=== PATIENT | female | born 1990 | race Caucasian/White ===

== ENCOUNTER 2017-09-07 14:30 | Outpatient (RCR) | payer MEDICAID, SELFPAY ==
--- NOTE | 2017-08-12 11:06 | HP.OTEVAL_ITS ---
Patient's Visit Information NEGRITA CHAVEZ is a 27 year old F, referred to Occupational Therapy by Out of Town Doctor,, with a diagnosis of L WRIST TENDONITIS AND PAIN; RA. Date of Evaluation: 08/12/17 Occupational Therapist: Margy Pace - Subjective Subjective: Pt., Negrita, arrived and noted that L wrist has been painful for two weeks. She noted that it's typically most painful lifting something, pro/ supination, driving, laundry, and cooking tasks all seem to aggrevate pain symptoms. Pt. 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 - Pain Left Wrist 2 Pain Intensity Range: 7 - Objective Objective/Observation: Pt. R hand has decreased ROM and strength secondary to h/ o RA. She is L hand dominant and has decreased ROM, strength, and increased pain with supination/pronation and load related lifting tasks. She presents with swelling over medial wrist at this time and noted tenderness when palpated. 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 rapport) in R hand. She is L hand dominant. - Strength Retirement Officer: R 9, L 31 Lateral Pinch: R 3, L 6 Tripod Pinch: R 1, L 3 Tip-to-Tip Pinch: R .5, L 2 - Edema Other: some swelling on ulnar side of wrist - Sensation Thumb: R 2.83, L 2.93 Index: R 2.83, L 2.93 Middle: R 2.83, L 2.93 Ring: R 2.83, L 2.93 Little: R 2.83, L 2.93 Kinesthesia: Normal - Right, Normal - Left - Nine Hole Peg Right: 22.48 s Left: 23.75 s - DASH-Disabilities of Arm, Shoulder& Hand DASH Sum: 51 - Goals Goal:: Pt. to increase L hand powder room attendant by 20-30 libs to promote increased ability to L wrist and promote increased ability to complete ADL/IADls pain free 4/5 trials 80% of the time by d/c. Goal:: Pt. to be 0-1/10 pain consistently with all ADl/IADls 4/5 trials 80% of the time to decrease discomfor tand promote increased (I) by time of d/c. Goal:: Pt. will increase fx pinch patterns by 3-5 lbs 4/5 trials 80% of the time to increase ability to complete FMC and manipulation tasks by time of d/c. Goal:: Pt. to be mod I with cues as needed to promote joint protection and body mechanics to increase alignment of L wrist 4/5 trials 80% of the time by d/c. Goal:: Pt. to be mod I to return to all ADl/IADls with use of compensatory measurements as needed 4/5 trials 80% of the time by d/c. Goal:: Pt. will be mod I to complete HEP 4/5 tirals 80% of the time to increase stability of wrist and decrease tendonitis symptoms during fx activities by time of d/c . - Rehabilitation General Assessment: Pt.Negrita, arrived and noted that she has been getting L wrist pain over ulnar side of wrist. She indicates pain at DRUJ on volar side of wrist and presents with some puffiness over medial ulnar wrist area. She also indicates pain over pisiform carpal area and around flexor carpi ulnaris tendon. Pt. ROM is WFL on L side but presents with decreased strength on L sides. She will recieve OT servcies for modalities as needed to decrease pain and inflammation while promoting stability of L wirst through strengthening. She will be education to promote proper body mechanics to for increased (I) in ADl/IADls. Rehabilitation Potential: Excellent - Anticipated Interventions Anticipated Interventions: Early Active Motion, A/AAROM/PROM, Strengthening, Edema Control, Modalities, Orthoses, Joint Protection/Energy Conservation, Ergonomic Education, Fine Motor Coord/Tony, ADL Training, Caregiver Training, Home Program - Visit Plan Frequency: 2x /Week Duration: 4-6 Weeks General Plan: Pt.Negrita, to recieve OT servcies for decreasing pain, and increasing ROM, srtength, body mechanics, joint protection technqiues, and ability to complete all ADl/IADls in pain free range. Modlaities will be used as needed to help decrease pain, as wellas trialing diffierent techniques such as kinesiotaping to promote support and alignment of wrist. TEXT: Thank you for the opportunity to evaluate your patient. For Medicare and Medicare HMO plans, please review the plan of care and approve it. It will need to be FAXED BACK to us at [phone] for Medicare purposes. Please let me know if there are questions or concerns regarding this plan of care. Physician Signature: Date:
--- NOTE | 2017-08-12 12:26 | HP.PTEVAL_ITS ---
Patient's Visit Information DAT CHAVEZ is a 27 year old F referred to Physical Therapy by Out of Town Doctor with a diagnosis of BILATERAL HIP PAIN ,BILATERAL GREATER TRONCHENTRIC BURSITS. Date of Evaluation: 08/12/17 Physical Therapist: Varun Jean Baptiste PT, - Visit Plan Frequency: 2x /Week Duration: 4 Weeks Plan: modalities PRN, hip strengthening,ankle strengthening,nustep - Subjective Subjective: This 27 y/o female presents to physical therapy with Bilateral hip pain,greater trocnanteric bursitis ankle anjle foot pain. 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 Patient has pain and stiffness in multple joints wrist ,knee,hip,ankle pain. 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 Patient affects daily activities and unable to work . Weather makes symptoms. Symtoms worse with walking in hips,difficulty lifting,sitting.Denies parathesia/ tingling.Patient okay at night.Housedwork tasks aggravates pain. VOCATION: unemployed. SOCIAL: - Pain Bilateral Hip Pain Intensity (Out of 10): 4 Pain Intensity Range: 10 Bilateral Ankle Pain Intensity (Out of 10): 3 Pain Intensity Range: 10 Bilateral Knee Pain Intensity (Out of 10): 3 Pain Intensity Range: 10 - Objective POSTURE: mild foward posture. NEURO: intact,denies parathesia/tingling. PALAPTION: mild tender greater tronchentric. ROM: hip 120 degrees,IR 65 ,ER 75 degrees. MMT: quads/hams 4/5,hip flexors/abd 4-/5,ankle EV/IN/DP/PF 4/5. SLS: hip strategie ,slight trendelengerg. GAIT: normal los. FLEXABILITY: hams min tight,piriformis WFL - Special Tests R Hip Scour: Negative R Hip Quadrant - Intraarticular Pathology: Negative R Hip DAMIÁN - Intraarticular Pathology: Negative R Hip Trendelenberg - Glut Medius: Negative R Hip Orlin - IT Band: Negative L Hip Scour: Negative L Hip Quadrant - Intraarticular Pathology: Negative L Hip DAMIÁN - Intraarticular Pathology: Negative L Hip Trendelenberg - Glut Medius: Negative L Hip Orlin - IT Band: Negative - Goals Goal 1:: Independant with HEP Goal Time Frame: 4-6 Weeks Goal 2:: Decrease hip pain by 50% or greater to improve function with job demands and ADL'S. Goal Time Frame: 4-6 Weeks Goal 3:: Patient increase strength BLE HIP 4/5 to improve function and ADL'S Goal Time Frame: 4-6 Weeks Goal 4:: Patient be able to perform ADLS' and housework tasks with walking and standing with min limations with less pain Goal Time Frame: 4-6 Weeks - Rehabilitation Potential Physical Therapy Diagnosis: This patient presents to physical theerapy with kristi DENNEY since baby affecting multilpe joints as well as currently have bursitis bilateral hips with weakness and affects housework and ADLS,walking, standing with pain in hips. Rehabilitation Potential: Good - Anticipated Interventions Patient/Client Instruction: Educate patient on: Condition, Plan of Care For the Purpose of:: To decrease pain, To increase ROM, To increase oxygenation perfusion, To improve ability to perform ADL's, To increase tolerance to activity/condition/position, To improve performance and independence with ADL's , To improve ability of physical actions for home/community/work/leisure, To improve health of tissue, To decrease soft tissue restriction, To foster healthy habits, To improve ability to perform tasks related to life management Therapeutic Exercise to Include: Strength training, Active ROM Comment: hip/knee/ankle For the Purpose of:: To decrease pain, To increase ROM, To improve muscle performance and motor function, To increase tolerance to activity/condition/ position, To improve performance and independence with ADL's, To improve ability of physical actions for home/community/work/leisure, To improve health of tissue, To decrease soft tissue restriction IF ES: Yes Cryotherapy (ice pack, ice massage): Yes Thermo therapy (hot pack): Yes Ultrasound (thermal/non thermal): Yes For the Purpose of:: To decrease pain, To improve muscle performance and motor function, To increase tolerance to activity/condition/position, To improve ability of physical actions for home/community/work/leisure, To improve health of tissue, To decrease soft tissue restriction, To improve ability to perform tasks related to life management Thank you for the opportunity to evaluate your patient. For Medicare and Medicare HMO plans, please review the plan of care and approve it. It will need to be FAXED BACK to us at [phone] for Medicare purposes. Please let me know if there are questions or concerns regarding this plan of care. Physician Signature: Date:
--- NOTE | 2017-09-07 15:00 | HP.OTDCSUM ---
HP - OT D/C Summary It has been my pleasure to treat DAT CHAVEZ under orders from Out of Town Doctor, for the diagnosis of L WRIST TENDONITIS AND PAIN; RA for a total of 7 visit(s). Please see the following information for a summary of their discharge status. - Objective Objective/Function: Reassessment completed. She noted she is 90% back to PLOF and has continued to progress with therapy. Her ROM on L side is WNL and R side WFL. Strength assessment is as follows: lean six sigma senior specialist R 18, L 42; lateral pinch R 6, 10; Three jaw R 3 L 9; tip R 2 L 7. - Goals Patient Goals: Regain Mobility, Regain Strength, Decrease Pain, Decrease Swelling/Stiffness, Improve Fine Motor Skills, Use Hand/Wrist/Arm Normally Again, Sleep Better, Decrease Tingling/Numbness, Increase ROM, Be More Independent in ADLS, Resume Former Household Responsibilities (Cooking,Cleaning,Yard, etc.), Resume Hobbies Goal:: Pt. to increase L hand lean six sigma senior specialist by 20-30 lbs to promote increased ability to L wrist and promote increased ability to complete ADL/IADls pain free 4/5 trials 80% of the time by d/c. Goal:: Pt. to be 0-1/10 pain consistently with all ADl/IADls 4/5 trials 80% of the time to decrease discomfor tand promote increased (I) by time of d/c. Goal:: Pt. will increase fx pinch patterns by 3-5 lbs 4/5 trials 80% of the time to increase ability to complete FMC and manipulation tasks by time of d/c. Goal:: Pt. to be mod I with cues as needed to promote joint protection and body mechanics to increase alignment of L wrist 4/5 trials 80% of the time by d/c. Goal:: Pt. to be mod I to return to all ADl/IADls with use of compensatory measurements as needed 4/5 trials 80% of the time by d/c. Goal:: Pt. will be mod I to complete HEP 4/5 tirals 80% of the time to increase stability of wrist and decrease tendonitis symptoms during fx activities by time of d/c . - Plan Plan: Pt. to be d/c'd on this date. She is to continue HEP and completing tasks as directed with correct body mechanics. She is to call with questions/concerns. - D/C Information If there are questions or concerns regarding this patient's occupational therapy, please fell free to call me at [phone]. Thank you for the referral of this patient. Sincerely, Magry Pace
--- NOTE | 2017-12-25 09:18 | HP.PTDCNRP_ITS ---
HP - Discharge Summary (1) - Patient Information DAT CHAVEZ was seen in my office for initial evaluation on 08/12/17. The following Plan of Care was established for this patient: Initial Frequency: 2x /Week Initial Duration: 4 Weeks - Anticipated Interventions Patient/Client Instruction: Educate patient on: Condition, Plan of Care For the Purpose of:: To decrease pain, To increase ROM, To increase oxygenation perfusion, To improve ability to perform ADL's, To increase tolerance to activity/condition/position, To improve performance and independence with ADL's , To improve ability of physical actions for home/community/work/leisure, To improve health of tissue, To decrease soft tissue restriction, To foster healthy habits, To improve ability to perform tasks related to life management Therapeutic Exercise to Include: Strength training, Active ROM For the Purpose of:: To decrease pain, To increase ROM, To improve muscle performance and motor function, To increase tolerance to activity/condition/ position, To improve performance and independence with ADL's, To improve ability of physical actions for home/community/work/leisure, To improve health of tissue, To decrease soft tissue restriction IF ES: Yes Cryotherapy (ice pack, ice massage): Yes Thermo therapy (hot pack): Yes Ultrasound (thermal/non thermal): Yes For the Purpose of:: To decrease pain, To improve muscle performance and motor function, To increase tolerance to activity/condition/position, To improve ability of physical actions for home/community/work/leisure, To improve health of tissue, To decrease soft tissue restriction, To improve ability to perform tasks related to life management This patient was last seen in our office 09/07/17. Pertinent comments regarding their Physical therapy will appear below: Patient seen for PT bilateral hip pain ,tronhanteric bursitis. PT focused on modalities,stretching,strengthening. Patient was progressing with managing her symptoms. At this point I will be discontinuing this patient from physical therapy. I would be happy to see this patient again in the future if found appropriate by the physician. Thank you! Varun Jean Baptiste, PT,
== END 2017-09-07 19:00 | disposition home or self-care (01) ==
LOC: OT 14:30
DX: M05.679 Rheumatoid arthritis of unspecified ankle and foot with involvement of other organs and systems (principal); M75.101 Unspecified rotator cuff tear or rupture of right shoulder, not specified as traumatic; M67.919 Unspecified disorder of synovium and tendon, unspecified shoulder; M25.532 Pain in left wrist; M77.8 Other enthesopathies, not elsewhere classified; M25.551 Pain in right hip; M25.552 Pain in left hip; M70.61 Trochanteric bursitis, right hip; M70.62 Trochanteric bursitis, left hip; M05.9 Rheumatoid arthritis with rheumatoid factor, unspecified; D47.3 Essential (hemorrhagic) thrombocythemia; D50.9 Iron deficiency anemia, unspecified; D64.9 Anemia, unspecified; E55.9 Vitamin D deficiency, unspecified; Z79.899 Other long term (current) drug therapy
CPT/HCPCS: 97018 ×2; 97035 ×4; 97110 ×3; 97140 ×4; 97162; 97166; 97530; 97014; G0283